=== PATIENT | male | born 1985 | race Caucasian/White ===

== ENCOUNTER 2024-11-30 22:34 | Emergency (ER) | payer BC, SELFPAY ==
[2024-11-30 22:37] VITALS: BMI 44.5
[2024-11-30 23:02] VITALS: BP 142/88; PULSE 89; RESP 18; TEMP 36.6; O2SAT 99
--- NOTE | 2024-11-30 23:02 | EKG_ITS ---
[facility] Test Date: 2024-11-30 Pat Name: SEMAJ RAMIREZ Department: Room: - Gender: Male Manganese Wheeler: : 1985 Requested By: Ryan Conti Order Number: [id number] Reading MD: Ryan Conti Measurements Intervals [place] Rate: 87 P: 69 CA: 162 QRS: 8 QRSD: 127 T: 25 QT: 366 QTc: 441 Interpretive Statements SINUS RHYTHM MODERATE INTRAVENTRICULAR CONDUCTION DELAY [110+ ms QRS DURATION] No previous ECG available for comparison /[id number]/[id number].pdf
--- NOTE | 2024-11-30 23:02 | XR_ITS ---
Examination: AP chest single view TECHNIQUE: Sitting AP chest single view Examination type: 25/01/2025 1110 hours INDICATIONS: Chest pain shortness of breath today. FINDINGS: Normal heart size. Lungs are clear. Small BB density overlies the mid to lower dorsal spine Intact osseous structures IMPRESSION: No active disease
--- NOTE | 2024-11-30 23:03 | PD.EDRME ---
Rapid Medical Screening Exam RME Arrival date/time: 11/30/24 22:34 Chief Complaint: Shortness of Breath/Dyspnea Time Seen by Provider: 11/30/24 22:49 Vital signs: Vital Signs Temperature 98 F 11/30/24 23:02 Pulse Rate 89 11/30/24 23:02 Respiratory Rate 18 11/30/24 23:02 Blood Pressure 142/88 H 11/30/24 23:02 Pulse Oximetry (%) 99 11/30/24 23:02 Oxygen Delivery Method Room Air 11/30/24 23:02 RME Narrative: Patient presents ED for multiple complaints: Chest pressure x 2 years. Shortness of breath, headache, generalized body numbness/weakness, fatigue.
--- NOTE | 2024-11-30 23:13 | PD.EDADULT ---
ED General RME/HPI General Chief complaint: Shortness of Breath/Dyspnea Stated complaint: SOB, body numb, GAFFNEY 06/17 Time Seen by Provider: 11/30/24 22:49 Arrival date/time: 11/30/24 22:34 RME / HPI RME / HPI narrative: Patient presents ED for multiple complaints: Chest pressure x 2 years. Shortness of breath, headache, generalized body numbness/weakness, fatigue. This section includes all my notes and documentations, including HPI, PE, and ED course. Marlo Jeffries MD HPI: 38-year-old male here with many months of on and off worsening cough, productive cough, purulent sputum, and dyspnea. No obvious fever or chills. And diffuse numbness and tingling today. No other complaints. ROS: All negative except as documented in HPI. Physical Exam: General: Alert and oriented. Appears anxious. Eyes: Conjunctivae and lids clear. EOMI. PERRL. ENT: No nasal congestion. Pharynx normal. Tympanic membrane normal bilaterally. Neck: Supple. No lymphadenopathy. No JVD. Heart: RRR. Lungs: No respiratory distress. Moderately decreased air movement with diffuse wheezing. Abdomen: Soft and nontender. Normal bowel sounds. No distension. No rebound or guarding. Back: No CVA tenderness. Legs: No clubbing, cyanosis, edema. Skin: Warm and dry. Neuro: Alert and oriented X 3. Cranial Nerves II-XII grossly intact. No peripheral motor deficits. I reviewed all diagnostic test results. My interpretation of the EKG is sinus rhythm with no acute ST?T changes. My interpretation of the chest x-ray is increased bronchial markings. Blood tests and urine tests unremarkable. COVID/influenza/RSV negative. At this point, diagnoses include low respiratory infection and anxiety. Treatment here included prednisone 60 mg and Zithromax 500 mg and DuoNeb and Xanax 0.75 mg. Significant improvement noted. Recommended a trial of outpatient treatment. Based on my best medical judgment, made decision no further evaluation or treatment indicated at this time. Patient understands and agrees to the discharge instructions customized and printed, see below. Discharge instructions from Dr. Jeffries: --No physical exertion for 3 days to help rest the lungs. ?No smoking or exposure to smoking or pets or dust or cold air. --Zithromax to kill the germs causing the bronchitis. --Prednisone to help decrease the swelling in the airways. --Albuterol 2 puffs every 4-6 hours for 3 days to help keep the airways open. Then as needed for cough or shortness of breath. --Xanax for anxiety. Avoid taking it more than 2-3 days/week, to avoid developing dependence. --See a private doctor on 12/06/2024 for recheck and further care. Ask to review all test results and official radiology reports, to make sure you receive all necessary follow-ups and monitoring, including your valley fever test result from today. Ask for help getting official testing for underlying asthma. --Seek immediate medical care with worsening or with any concerns. Marlo Jeffries MD Related Data Previous Rx's ?Medication ?Instructions ?Recorded albuterol sulfate 90 mcg/actuation 2 puff inhalation Q6H PRN 12/01/24 aerosol inhaler shortness of breath or wheezing #8.5 grams alprazolam 0.5 mg tablet (Xanax) 0.5 mg PO BID PRN anxiety #10 tabs 12/01/24 azithromycin 500 mg tablet 500 mg PO QDAY 3 days #3 tabs 12/01/24 (Zithromax TRI-AFTAB) prednisone 20 mg tablet 40 mg PO BID 3 days #12 tabs 12/01/24 Allergies Allergy/AdvReac Type Severity Reaction Status Date / Time No Known Allergies Allergy Verified 11/30/24 22:37 Course Quality Measures none Orders Category Date Time Status Bedside COVID-19 Antigen Test NOW Care 11/30/24 23:22 Completed Bedside Influenza A&B Antigen Test NOW Care 11/30/24 23:22 Completed EKG (ED ONLY) *Do not use* NOW Care 11/30/24 23:02 Completed CXR [XR chest 1V] Stat Exams 11/30/24 23:02 Completed EKG (ED Only) Stat Exams 11/30/24 23:02 Draft Alcohol, Blood Medical Stat Lab 11/30/24 23:44 Completed BNP [B-Type Natriuretic Peptide] Stat Lab 11/30/24 23:44 Completed CBC Stat Lab 11/30/24 23:44 Completed CMP [Comprehensive Metabolic Panel] Stat Lab 11/30/24 23:44 Completed Cocci Serology IgM with reflex to IgG [Cocci Serology, Lab 11/30/24 23:44 Received Unk History] Stat D-Dimer Stat Lab 11/30/24 23:44 Completed Drug Screen,Urine Stat Lab 12/01/24 01:07 Completed Magnesium Stat Lab 11/30/24 23:44 Completed TSH [Thyroid Stimulating Hormone] Stat Lab 11/30/24 23:44 Completed Troponin I Stat Lab 11/30/24 23:44 Completed UA [Urinalysis] Stat Lab 12/01/24 01:07 Completed ALPRazoLAM [Xanax] Med 11/30/24 23:22 Discontinued 0.75 mg PO X1 ONE Albuterol/Ipratr Rt Corina [Duoneb Rt Corina] Med 11/30/24 23:22 Discontinued 3 ml INH X1 ONE Azithromycin Po [Zithromax PO] Med 12/01/24 01:18 Discontinued 500 mg PO X1 ONE predniSONE Med 11/30/24 23:22 Discontinued 60 mg PO X1 ONE Vital Signs Vital signs: Vital Signs Temperature 98 F 11/30/24 23:02 Pulse Rate 89 11/30/24 23:02 Respiratory Rate 18 11/30/24 23:02 Blood Pressure 142/88 H 11/30/24 23:02 Pulse Oximetry (%) 99 11/30/24 23:02 Oxygen Delivery Method Room Air 11/30/24 23:02 [facility] Patient data External records reviewed:: None Clinical information provided by:: patient Social determinants that could affect healthcare access:: none Patient has the following chronic illnesses:: None How is presenting disease/condition affected by chronic disease/condition?: no chronic disease Evaluation data The following diagnostics were reviewed and interpreted by me:: lab results, radiology exam(s) and EKG tracing(s) (My interpretation of the EKG is: Sinus rhythm (87 bpm) with nonspecific ST-T changes. Marlo Jeffries MD) Lab and/or radiology exams considered but not ordered:: None Interpretation Summary: Lower respiratory infection and anxiety Medications Medications considered but not ordered:: None Medication administrations:: Medication Administration History Discontinued Medications Albuterol/Ipratropium (Albuterol/Ipratropium (Duoneb) Rt Corina 3 Ml Nebu) 3 ml INH X1 ONE Stop: 11/30/24 23:23 Last Admin: 11/30/24 23:48 Dose: 3 ml Documented By: NE Alprazolam (Alprazolam 0.25 Mg Tablet) 0.75 mg PO X1 ONE Stop: 11/30/24 23:23 Last Admin: 12/01/24 00:05 Dose: 0.75 mg Documented By: SR Azithromycin (Azithromycin 250 Mg Tablet) 500 mg PO X1 ONE Stop: 12/01/24 01:19 Last Admin: 12/01/24 01:34 Dose: 500 mg Documented By: SR Prednisone (Prednisone 20 Mg Tablet) 60 mg PO X1 ONE Stop: 11/30/24 23:23 Last Admin: 12/01/24 00:05 Dose: 60 mg Documented By: SR Treatment here included prednisone 60 mg and Zithromax 500 mg and DuoNeb and Xanax 0.75 mg. Consultations Consultation(s) initiated? (list below): No Diagnosis Differential Diagnosis ED Complaint MDM: [place], PE, CHF, pneumonia, COVID, influenza, RSV, lower respiratory infection Most likely diagnosis given after review of the tests above:: Lower respiratory infection and anxiety Admission Indicated Admission indicated?: not indicated Explain why admission is indicated or not indicated:: With significant improvement, there was no indication for admission. Admission Request Was there a request for admission?: No Disposition Plan Disposition Plan: Discharge Discharge Attestation Discharge Attestation: The patient and all family members were given an opportunity to ask questions and understood the discharge instructions. Discharge instructions specifically effects, indications for sooner follow up or return to the emergency department, and the expected course of current diagnosis. Patient condition: Stable Medical Decision Making Differential Diagnosis Differential Diagnosis: [place], PE, CHF, pneumonia, COVID, influenza, RSV, lower respiratory infection Lab Data 11/30/24 23:44 11/30/24 23:44 Labs: Lab Results 11/30/24 12/01/24 Range/Units 23:44 01:07 WBC 10.4 (3.8-10.6) Thou/mm3 RBC 4.89 (4.50-5.90) Miln/mm3 Hgb 14.3 (13.5-16.0) g/dL Hct 41.3 (41.0-53.0) % MCV 85 (80-100) fL MCH 29.2 (25.0-35.0) pg MCHC 34.6 (31.0-37.0) g/dl RDW Std Deviation 40.1 (35.1-43.9) fL Plt Count 281 (140-440) Thou/mm3 Neut % (Auto) 80 (37-80) % Lymph % (Auto) 10 (10-50) % Rock % (Auto) 8 (0-12) % Eos % (Auto) 2 (0-10) % Baso % (Auto) 1 (0-2.5) % Neut # (Auto) 8.3 H (1.8-7.7) Thou/mm3 Lymph # (Auto) 1.0 (1.0-4.8) Thou/mm3 Rock # (Auto) 0.8 (0.0-0.8) Thou/mm3 Eos # (Auto) 0.2 (0.0-0.5) Thou/mm3 Baso # (Auto) 0.1 (0.0-0.2) Thou/mm3 Immature Gran # (Auto) 0.04 H (0.00-0.00) Thou/mm3 Absolute Nucleated RBC 0.00 (0.00-0.00) Thou/mm3 Immature Gran % 0 (0-0) % Nucleated RBC % 0 (0) /100 WBC D-Dimer < 250 (<600) ng/mL Sodium 141 (136-145) mMol/L Potassium 3.5 (3.4-5.1) mMol/L Chloride 107 (98-107) mMol/L Carbon Dioxide 23.8 (20.0-31.0) mMol/L Anion Gap 10 (7-16) BUN 13 (9-23) mg/dL Creatinine 1.1 (0.6-1.3) mg/dL Estim Creat Clear Calc 122.5 (>60) mL/min eGFR > 60 (60 - ) See Note BUN/Creatinine Ratio 12 (12-20) Ratio Glucose 119 H (74-106) mg/dL Calculated Osmolality 282 (275-295) Calcium 10.0 (8.3-10.6) mg/dL Corrected Calcium 10.0 (8.5-10.1) mg/dL Magnesium 2.2 (1.6-2.6) mg/dL Total Bilirubin 0.4 (0.3-1.2) mg/dL AST 20 (0-34) U/L ALT 18 (10-49) U/L Alkaline Phosphatase 77 (46-116) U/L Troponin I < 0.020 (0.0-0.045) ng/mL B-Natriuretic Peptide < 20 (0-100) pg/mL Total Protein 7.7 (5.7-8.2) gm/dL Albumin 4.7 (3.5-5.0) gm/dL Globulin 3.0 (2.3-3.5) gm/dL Albumin/Globulin Ratio 1.6 (1.2-2.2) TSH 1.98 (0.55-4.78) uIU/mL Ur Collection Type Clean Catch Urine Color Lt-Yellow (Lt Yel-Yel) Urine Clarity Clear (Clear/Hazy) Urine pH 7.0 (5.0-7.0) Ur Specific [place] 1.012 (1.001-1.035) Urine Protein Negative (Neg - Trace) Urine Glucose (UA) Negative (Negative) Urine Ketones 2+ A (Negative) Urine Blood Negative (Negative) Urine Nitrite Negative (Negative) Urine Bilirubin Negative (Negative) Urine Urobilinogen (Auto) Negative (0.0-1.0) mg/dL Ur Leukocyte Esterase Negative (Negative) Urine RBC 1 (0-3) /hpf Urine WBC < 1 (0-5) /hpf Ur Squamous Epith Cells < 1 (0-5) /hpf Urine Bacteria None (None) Urine Opiates Screen Negative (Negative) Urine Fentanyl Screen Negative (Negative) Ur Barbiturates Screen Negative (Negative) U Amphetamin/Meth Scrn Negative (Negative) U Benzodiazepines Scrn Negative (Negative) U Cocaine Metab Screen Negative (Negative) U Marijuana (THC) Screen Negative (Negative) Ethyl Alcohol < 3.0 (0-10.0) mg/dL Discharge Plan Plan Patient Disposition: HOME (Self Care) Prescriptions/Referrals Prescriptions/Med Rec: New prednisone 20 mg tablet 40 mg PO BID 3 Days Qty: 12 0RF Taper: Prednisone Taper 20 mg DAILY for 2 Days and 0 Hour 10 mg DAILY for 2 Days and 0 Hour 5 mg DAILY for 7 Days and 0 Hour alprazolam [Xanax] 0.5 mg tablet 0.5 mg PO BID PRN (Reason: anxiety) Qty: 10 0RF albuterol sulfate 90 mcg/actuation HFA aerosol inhaler 2 puff inhalation Q6H PRN (Reason: shortness of breath or wheezing) Qty: 8.5 0RF azithromycin [Zithromax TRI-AFTAB] 500 mg tablet 500 mg PO QDAY 3 Days Qty: 3 0RF Referrals: No Primary/Family,Physician [Primary Care Provider] - In 1 week Problem List Clinical Impression: Lower respiratory infection Patient/Caregiver Discharge Instructions Discharge Activity: activity as tolerated Education Materials: ED Anxiety Reaction, ED Bronchitis with Wheezing (Adult), ED Panic Attack Additional Instructions: Discharge instructions from Dr. Jeffries: --No physical exertion for 3 days to help rest the lungs. ?No smoking or exposure to smoking or pets or dust or cold air. --Zithromax to kill the germs causing the bronchitis. --Prednisone to help decrease the swelling in the airways. --Albuterol 2 puffs every 4-6 hours for 3 days to help keep the airways open. Then as needed for cough or shortness of breath. --Xanax for anxiety. Avoid taking it more than 2-3 days/week, to avoid developing dependence. --See a private doctor on 12/06/2024 for recheck and further care. Ask to review all test results and official radiology reports, to make sure you receive all necessary follow-ups and monitoring, including your valley fever test result from today. Ask for help getting official testing for underlying asthma. --Seek immediate medical care with worsening or with any concerns. Print Language: Tajik Stand Alone Forms: Reta Award Info., Patient Portal Info Letter
[2024-11-30] MEDS: ALBUTEROL/IPRATROPIUM (Duoneb) RT SOL 3 ML NEBU INH (23:48)
[2024-11-30 23:49] VITALS: PULSE 105; RESP 20; O2SAT 97
[2024-12-01] MEDS: predniSONE 20 MG TABLET 60 MG PO (00:05)
[2024-12-01] MEDS: ALPRazoLAM 0.25 MG TABLET 0.75 MG PO (00:05)
[2024-12-01 00:10] LABS: Basophils # (Auto) 0.1 Thou/mm3 (0.0-0.2); Basophils % (Auto) 1 % (0-2.5); Eosinophils # (Auto) 0.2 Thou/mm3 (0.0-0.5); Eosinophils % (Auto) 2 % (0-10); Hematocrit 41.3 % (41.0-53.0); Hemoglobin 14.3 g/dL (13.5-16.0); Immature Granulocytes % (Auto) 0 % (0-0); Immature Granulocytes Auto 0.04 Thou/mm3 (0.00-0.00); Lymphocytes % (Auto) 10 % (10-50); Mean Corpuscular HGB Conc 34.6 g/dl (31.0-37.0); Mean Corpuscular Hemoglobin 29.2 pg (25.0-35.0); Mean Corpuscular Volume 85 fL (80-100); Monocytes # (Auto) 0.8 Thou/mm3 (0.0-0.8); Monocytes % (Auto) 8 % (0-12); Neutrophils # (Auto) 8.3 Thou/mm3 (1.8-7.7); Neutrophils % (Auto) 80 % (37-80); Nucleated Red Blood Cell % 0 /100 WBC (0); Platelet Count 281 Thou/mm3 (140-440); RDW Standard Deviation 40.1 fL (35.1-43.9); Red Blood Count 4.89 Miln/mm3 (4.50-5.90); White Blood Count 10.4 Thou/mm3 (3.8-10.6)
[2024-12-01 00:13] LABS: B-Type Natriuretic Peptide < 20 pg/mL (0-100)
[2024-12-01 00:22] LABS: Alanine Aminotransferase 18 U/L (10-49); Albumin, Serum 4.7 gm/dL (3.5-5.0); Albumin/Globulin Ratio 1.6 (1.2-2.2); Alcohol, Blood Medical < 3.0 mg/dL (0-10.0); Alkaline Phosphatase 77 U/L (46-116); Anion Gap 10 (7-16); Aspartate Amino Transferase 20 U/L (0-34); BUN/Creatinine Ratio 12 Ratio (12-20); Bilirubin,Total 0.4 mg/dL (0.3-1.2); Blood Urea Nitrogen 13 mg/dL (9-23); Carbon Dioxide 23.8 mMol/L (20.0-31.0); Chloride 107 mMol/L (98-107); Creatinine (Component) 1.1 mg/dL (0.6-1.3); Estimated Creatinine Clearance 122.5 mL/min (>60); Glucose 119 mg/dL (74-106); Magnesium 2.2 mg/dL (1.6-2.6); Osmolality,Calculated 282 (275-295); Potassium 3.5 mMol/L (3.4-5.1); Sodium 141 mMol/L (136-145); Thyroid Stimulating Hormone 1.98 uIU/mL (0.55-4.78); Total Protein 7.7 gm/dL (5.7-8.2); Troponin I < 0.020 ng/mL (0.0-0.045); eGFR > 60 See Note
[2024-12-01 00:36] LABS: D-Dimer < 250 ng/mL (<600)
[2024-12-01 01:13] LABS: Collection Type, Urine Clean Catch
[2024-12-01] MEDS: AZITHROMYCIN 250 MG TABLET 500 MG PO (01:34)
[2024-12-01 01:35] LABS: Amphetamine/Methamp Scrn,U Negative (Negative); Barbiturate Screen,Urine Negative (Negative); Benzodiazepines Screen,Urine Negative (Negative); Benzoylecgonine Screen, Ur Negative (Negative); Fentanyl Screen,Urine Negative (Negative); Opiate Screen,Urine Negative (Negative); THC Screen,Urine Negative (Negative)
[2024-12-01 01:39] VITALS: PULSE 83; RESP 18; TEMP 36.3; O2SAT 97
[2024-12-01 02:04] LABS: Bilirubin,Urine Negative (Negative); Blood,Urine Negative (Negative); Clarity,Urine Clear (Clear/Hazy); Color,Urine Lt-Yellow (Lt Yel-Yel); Glucose, Urine Negative (Negative); Ketones,Urine 2+ (Negative); Leukocyte Esterase,Urine Negative (Negative); Nitrite,Urine Negative (Negative); Protein,Urine Negative (Neg - Trace); RBC,Urine 1 /hpf (0-3); Specific Gravity,Urine 1.012 (1.001-1.035); Squamous Epithelial Cell,Urine < 1 /hpf (0-5); Urobilinogen,Urine Negative mg/dL (0.0-1.0); WBC,Urine < 1 /hpf (0-5)
[2024-12-01 13:12] LABS: Cocci Serology, IgM Negative (Negative)
[2024-12-02 11:55] LABS: Cocci Serology, IgG Negative (Negative)
== END 2024-12-01 02:15 | disposition home or self-care (01) ==
PROVIDERS: Physician Assistant; Emergency Provider Emergency Medicine
DX: J22 Unspecified acute lower respiratory infection (principal)
CPT/HCPCS: 36415; 71045; 80053; 80307; 80320; 81001; 83735; 83880; 84443; 84484; 85025; 85379; 86331; 86635; 87400; 87634; 87811; 93005; 94640; 99283; A9270; J7512; G0480